=== PATIENT | male | born 1945 | race Caucasian/White ===

== ENCOUNTER → 2017-06-10 | Outpatient (CLI) | payer MEDICARE, OTHER | LOC: PULM 14:31 | PROVIDERS: ATTEND Nurse Practitioner Family | DX: J44.9 Chronic obstructive pulmonary disease, unspecified (principal) ==

== ENCOUNTER → 2017-06-23 | Outpatient (CLI) | payer MEDICARE, OTHER ==
[~2017-06-23] MED LIST: RT-ALBUTEROL SULF 2.5 MG/3 ML PRE-MIX VIAL INH ONE
== END ==
LOC: EDUNIT# 06-16 15:30 → RT 13:18
PROVIDERS: ATTEND Nurse Practitioner Family
DX: J44.9 Chronic obstructive pulmonary disease, unspecified (principal)
CPT/HCPCS: 94060; 94726; 94729

== ENCOUNTER → 2017-06-26 | Outpatient (CLI) | payer MEDICARE, OTHER ==
--- NOTE | 2017-06-26 14:55 | Diagnostic Imaging Report ---
INDICATION: Hypoxia. COMPARISON: None. FINDINGS: Two views of the chest are obtained. Heart size is normal. The pulmonary vessels appear unremarkable. There are postoperative changes mediastinum. There is no pneumothorax or pleural fluid. Diaphragms are flattened consistent with COPD. There is some minimal scarring or atelectasis in the right perihilar region. Lungs are otherwise clear. There are degenerative changes in the spine. IMPRESSION: Findings of COPD with mild right perihilar atelectasis or scarring. No additional abnormality is seen. Dictated by: Dictated on workstation # [id number]
== END ==
LOC: RAD 14:13
PROVIDERS: ATTEND Internal Medicine Critical Care Medicine
DX: J44.9 Chronic obstructive pulmonary disease, unspecified (principal); G47.34 Idiopathic sleep related nonobstructive alveolar hypoventilation; J30.2 Other seasonal allergic rhinitis
CPT/HCPCS: 71046

== ENCOUNTER → 2018-09-28 | Outpatient (CLI) | payer MEDICARE, OTHER ==
[~2018-09-28] MED LIST changes: +HOLD METFORMIN - RECEIVED CONTRAST 20 ML VIAL IV SCH; +IOHEXOL 350 MG/ML 100 ML (OMNIPAQUE 350) VIAL IV ONE; +NS 100 ML (IVPB) BAG IV ONE; -RT-ALBUTEROL SULF 2.5 MG/3 ML PRE-MIX VIAL INH ONE
[2018-09-28 11:21] LABS: CREATININE SERUM 1.2 MG/DL (0.60-1.30)
--- NOTE | 2018-09-28 18:15 | Diagnostic Imaging Report ---
PROCEDURE: CT chest with contrast only. TECHNIQUE: Multiple contiguous axial images were obtained through the chest after administration of intravenous contrast. Auto Exposure Controls were utilized during the CT exam to meet ALARA standards for radiation dose reduction. DATE: September 28, 2018. COMPARISON: Chest radiographs June 26, 2017. INDICATION: 73-year-old male, history of COPD. Chronic bronchitis. Hypoxia. FINDINGS: There is mild pleural-parenchymal scarring in the lung apices. There is no identified pulmonary nodule or lung mass. There are mild linear opacities in the lower aspect of the right upper lobe and within the right lower lobe compatible with mild scarring and/or atelectasis. There is no additional focal airspace consolidation. There is no pneumothorax. There is no pleural effusion. The more central airways are patent. There is an aberrant right subclavian artery. The heart is not enlarged. There is no pericardial effusion. There are coronary artery calcifications and additional areas of atherosclerotic disease. The main pulmonary artery is normal in caliber. There is nondiagnostic assessment for pulmonary embolus given the timing of the contrast bolus. There is no identified abnormally enlarged mediastinal, hilar, or axillary lymph node which meets CT size criteria for adenopathy. There is a 7 mm low-attenuation lesion in the spleen on axial image 62 which is nonspecific. Additional evaluation of the imaged portions of the upper abdomen is unremarkable. There are degenerative changes of the spine. There are median sternotomy wires. There are multilevel degenerative changes of the spine. There is no identified acute bony abnormality. IMPRESSION: CT CHEST. 1. Very mild pleural-parenchymal scarring in the lung apices, right upper lobe, and right lower lobe. 2. No acute cardiopulmonary abnormality. 3. Aberrant right subclavian artery. Dictated by: Dictated on workstation # [id number]
== END ==
LOC: RAD 10:45
PROVIDERS: ATTEND Nurse Practitioner Family
DX: J44.9 Chronic obstructive pulmonary disease, unspecified (principal); J30.2 Other seasonal allergic rhinitis; G47.34 Idiopathic sleep related nonobstructive alveolar hypoventilation; G47.33 Obstructive sleep apnea (adult) (pediatric)
CPT/HCPCS: 36415; 71260; 82565; 84520

== ENCOUNTER → 2019-01-04 | Outpatient (CLI) | payer MEDICARE, OTHER ==
[2019-01-04 10:57] LABS: CREATININE SERUM 1.2 MG/DL (0.60-1.30)
--- NOTE | 2019-01-04 12:42 | Diagnostic Imaging Report ---
PROCEDURE: CT chest with contrast only. TECHNIQUE: Multiple contiguous axial images were obtained through the chest after administration of intravenous contrast. Auto Exposure Controls were utilized during the CT exam to meet ALARA standards for radiation dose reduction. INDICATION: COPD. COMPARISON: Comparison is made with prior CT chest from 09/28/2018. FINDINGS: Postoperative changes of median sternotomy are noted. Heart size is stable. No axillary lymphadenopathy is identified. No definite mediastinal or hilar lymphadenopathy is identified. There is no pericardial or pleural fluid detected. Thoracic aorta appears to be normal caliber. No dissection is seen. Aberrant right subclavian artery is again noted. Biapical pleural-parenchymal scarring is again noted. There is some scarring or atelectasis in the right middle lobe. Scarring or atelectasis in posterior right lower lobe is noted. No parenchymal mass or infiltrate is detected. The upper abdomen is unremarkable. Bony structures are nonacute. IMPRESSION: Stable CT of the chest with contrast when compared with exam from 09/28/2018. No acute features detected. Dictated by: Dictated on workstation # [id number]
== END ==
LOC: RAD 10:30
PROVIDERS: ATTEND Nurse Practitioner Family
DX: J44.9 Chronic obstructive pulmonary disease, unspecified (principal); J30.2 Other seasonal allergic rhinitis; Z98.890 Other specified postprocedural states
CPT/HCPCS: 36415; 71260; 82565; 84520